=== PATIENT | female | born 1995 ===

== ENCOUNTER 2021-05-12 01:54 | Emergency (ER) | payer OTHER ==
[~2021-05-12] VITALS: Ht 157.5 cm; Wt 94.3 kg
[2021-05-12] MEDS ORDERED: SYNTHROID50 MCG PO (02:02)
[2021-05-12] MEDS ORDERED: VITAMIN D350 MCG PO (02:02)
[2021-05-12] MEDS ORDERED: SPRINTEC 28 DA1 EACH PO (02:02)
[2021-05-12] MEDS ORDERED: KETO10TA2 PO (06:01)
[2021-05-12] MEDS ORDERED: ORPHENADRINE C100 MG PO (06:01)
== END 2021-05-12 06:08 | disposition home or self-care (01) ==
LOC: ER 01:54
DX: M25.511 Pain in right shoulder (principal)